=== PATIENT | female | born 1970 | race Caucasian/White ===

== ENCOUNTER 2022-10-10 07:23 | Day surgery (SDC) | payer OTHER ==
[~2022-10-10] VITALS: Ht 157.5 cm; Wt 49.9 kg
[2022-10-10] MEDS ORDERED: LIDOCAINE 2% 100 MG/5 ML UJET TP ONE (09:45)
[2022-10-10] MEDS ORDERED: diphenhydrAMINE 50 MG/ML VIAL ONE (09:45)
[2022-10-10] MEDS ORDERED: fentaNYL citrate 0.05 MG/ML VIAL ONE (09:45)
[2022-10-10] MEDS ORDERED: MIDAZOLAM 2 MG/2 ML VIAL ONE (09:45)
[2022-10-10] MEDS ORDERED: MIDAZOLAM 2 MG/2 ML VIAL IVP ONE (13:35)
[2022-10-10] MEDS ORDERED: fentaNYL citrate 0.05 MG/ML VIAL IVP ONE (13:35)
== END 2022-10-10 11:15 | disposition home or self-care (01) ==
LOC: MDS 07:23 → MMU 07:25 → MDS 11:15
PROVIDERS: ATTEND Internal Medicine Gastroenterology
DX: Z12.11 Encounter for screening for malignant neoplasm of colon (principal); K63.5 Polyp of colon
CPT/HCPCS: 45385; J2250; J3010; 88305; J1200